=== PATIENT | male | born 1995 | race Caucasian/White ===

== ENCOUNTER 2025-06-08 10:18 | Emergency (ER) | payer MEDICARE, SELFPAY ==
[2025-06-08 10:32] VITALS: BP 119/88; PULSE 88; RESP 18; TEMP 36.1; O2SAT 98; BMI 25.1
--- NOTE | 2025-06-08 10:47 | ED.PSYCH ---
HPI - Psych General Chief Complaint: Psychiatric Symptoms Stated Complaint: SI, section 12 Source: patient, EMS and old records reviewed Mode of arrival: EMS Limitations: no limitations History of Present Illness ED Provider: MELISSA HPI Narrative: 29 yo male who states he takes no meds but sees a therapist. Going through a break up and went to work today c/o SI and plans to cut his throat. He tells me no substance abuse or ETOH issues. He denies ever going inpatient before for mental health issues. He has been punching jones has some old healed scabs on his bilateral knuckles. MD complaint: suicidal ideation, feels depressed and anxiety Onset (ago): week(s) Duration: getting worse History of same: No Relieving factors: none Exacerbating factors: other Context: significant life stressor Associated psychiatric symptoms: depression and suicidal ideation Associated symptoms: denies other symptoms Treatments prior to arrival: placed on mental health hold If self harm: admits thoughts of self harm and has plan Related Data Allergies Allergy/AdvReac Type Severity Reaction Status Date / Time No Known Allergies Allergy Verified 06/08/25 10:34 Review of Systems Review of Systems: Constitutional : No Fever, No Chills ENT/Mouth : No Ear Pain, No Nasal Congestion, No sore throat Eyes: No Eye Pain, No Swelling, No Redness Cardiovascular : No Chest Pain, No SOB Respiratory : No Cough, No Sputum, No Dyspnea Gastrointestinal : No Nausea, No Vomiting, No Diarrhea, No Hematochezia, No Melena Genitourinary : No Dysuria, No Urinary Frequency, No Hematuria Musculoskeletal : No Myalgias Skin : No Skin Lesions, No rash Neuro : No Weakness, No Numbness, No Paresthesias, No Dizziness, No Headache Psych : positive Anxiety, positive Depression, positive SI no HI All other systems reviewed and are negative Yes all other systems are reviewed and are negative [facility] Past Medical History Attestation statement: The following information was validated with the patient. 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 Oriented X3. No acute distress. Eyes: Pupils equal, round and reactive to light. ENT: Pharynx normal. Neck: Normal inspection. Neck supple. CVS: Normal heart rate and rhythm. Pulses normal. Respiratory: No respiratory distress. Breath sounds normal. Abdomen: Soft and nontender. Skin: Skin warm and dry. Normal skin color. Normal skin turgor. Extremities: No lower extremity edema. bilateral hands have scabbed areas but normal ROM Neuro: Oriented X 3. No motor deficit. No sensory deficit. CN2-12 intact Course Course Course Narrative: Time: 14:27 Date: 06/08/25 Provider: Indira Whitt DO Physician observation ended at 227pm. Patient to be discharged home cleared by CARE team Medical Decision Making Medical Decision Making MDM Narrative: 29 yo male on S12 here with c/o recent break up now with SI - will obtain labs and CARE team consult. He declines any concerns for medical illness Differential Diagnosis Differential Diagnoses: The differential diagnosis associated with the presentation includes ETOH abuse, SI, depression Admission/Observation Consideration of admission/observation: Escalation of care including admission/observation considered physician observation started at 1138am pending CARE team Consult Healthcare Provider Management of the patient was discussed with: Behavioral Health Provider Lab Data [facility] Lab Attestation statement: I reviewed the patient's lab results. 06/08/25 10:59 06/08/25 10:59 Labs: Lab Results 06/08/25 06/08/25 06/08/25 Range/Units 10:59 12:21 12:23 WBC 5.3 (4.8-10.8) X10*3/uL RBC 4.97 (4.60-5.80) X10*6/uL Hgb 15.8 (14.0-18.0) g/dl Hct 45.8 (42.0-52.0) % MCV 92.2 (80.0-98.0) fL MCH 31.8 (27.0-33.0) pg MCHC 34.5 (31.0-36.0) g/dl RDW 12.2 (11.0-16.0) % Plt Count 300 (160-400) X10*3/uL MPV 8.5 L (9.4-12.4) fL Immature Gran % (Auto) 0.4 (0.0-0.4) % Neut % (Auto) 66.4 (45-73) % Lymph % (Auto) 20.6 (20-40) % [place] % (Auto) 9.9 (2-11) % Eos % (Auto) 1.9 (0-4) % Baso % (Auto) 0.8 (0-2) % Lymph # (Auto) 1.1 L (1.2-4.9) X10*3/uL [place] # (Auto) 0.5 (0.1-1.2) X10*3/uL Eos # (Auto) 0.1 (0.0-0.4) X10*3/uL Baso # (Auto) 0.0 (0.0-0.2) X10*3/uL Abs Immat Gran (auto) 0.02 (0.00-0.03) X10*3/uL Absolute Neuts (auto) 3.5 (2.0-8.3) x10*3/uL Absolute Nucleated RBC 0.000 (0.0-0.012) X10*3/uL Nucleated RBC % (auto) 0.0 (0.0-0.2) /100WBC Sodium 141 (135-145) mmol/L Potassium 4.2 (3.3-5.1) mmol/L Chloride 106 (96-108) mmol/L Carbon Dioxide 23 (22-29) mmol/L Anion Gap 16 (12-20) BUN 8 L (9-16) mg/dL Creatinine 0.91 (0.5-1.4) mg/dL Estim Creat Clear Calc 115.8 Estimated GFR > 60 Random Glucose 85 (60-115) mg/dL Calcium 9.3 (8.4-10.2) mg/dL Magnesium 2.3 (1.6-2.6) mg/dL Total Bilirubin 0.6 (0.0-1.0) mg/dL Direct Bilirubin 0.2 (0.0-0.5) mg/dL AST 180 H (5-37) U/L ALT 279 H (0-40) U/L Alkaline Phosphatase 58 (39-117) U/L Total Protein 7.8 (6.5-8.0) g/dL Albumin 5.1 H (3.5-5.0) g/dL Urine Color Yellow Urine Appearance Clear Urine pH 7.0 (5.0-9.0) Ur Specific [place] <= 1.005 (1.005-1.025) Urine Protein Negative (Neg-Trace) mg/dL Urine Glucose (UA) Negative (Negative) mg/dL Urine Ketones Negative (Negative) mg/dL Urine Blood Negative (Negative) Urine Nitrite Negative (Negative) Ur Leukocyte Esterase Negative (Negative) Urine Opiates Screen Not Detected (Not Detect) Ur Buprenorphine Scrn Not Detected (Not Detect) ng/mL Ur Oxycodone Screen Not Detected (Not Detect) ng/mL Urine Methadone Screen Not Detected (Not Detect) ng/mL Urine Fentanyl Screen Not Detected (Not Detect) Ur Barbiturates Screen Not Detected (Not Detect) Ur Phencyclidine Scrn Not Detected (Not Detect) Ur Amphetamines Screen Not Detected (Not Detect) U Benzodiazepines Scrn Not Detected (Not Detect) Urine Cocaine Screen Not Detected (Not Detect) U Marijuana (THC) Screen Not Detected (Not Detect) Ethyl Alcohol 158 mg/dL Independent Historian Clinical information obtained from an independent historian. History obtained from or confirmed by: EMS Discharge Plan Discharge Clinical Impression: Depression Qualifiers: Depression Type: unspecified Qualified Code(s): F32.A - Depression, unspecified Patient Disposition: Home, Self-Care Instructions: Depression (ED) Additional Instructions: You were seen in our Emergency Department today for treatment of a behavioral health issue. It is important after your visit that you follow up with either your behavioral health provider or a primary care doctor within 7 days.? If you have trouble finding a therapist you can reach out to [address] [phone] The National Suicide and Crisis Lifeline can be reached 7 days a week 24 hours a day.? Call 988 to speak with someone.? Return for any worsening symptoms or concerns such as thoughts of self harm or harm to others. Please call 911 if you feel your mental health is worsening.? Interventions: Glades-Suicide Risk Severity Scale Last Done: 06/08/25 11:27 Print Language: Tongan
[2025-06-08 11:03] LABS: MANUAL DIFF FLAG NO
[2025-06-08 11:05] LABS: Hematocrit 45.8 % (42.0-52.0); Hemoglobin 15.8 g/dl (14.0-18.0); Imm Gran Abs Auto 0.02 X10*3/uL (0.00-0.03); Imm Gran Pct Auto 0.4 % (0.0-0.4); Lymphocytes Absolute Auto 1.1 X10*3/uL (1.2-4.9); Mean Corpuscular HGB Conc 34.5 g/dl (31.0-36.0); Mean Corpuscular Hemoglobin 31.8 pg (27.0-33.0); Mean Corpuscular Volume 92.2 fL (80.0-98.0); NRBC Abs Auto 0.000 X10*3/uL (0.0-0.012); NRBC Pct Auto 0.0 /100WBC (0.0-0.2); Platelet Count 300 X10*3/uL (160-400); Red Blood Count 4.97 X10*6/uL (4.60-5.80); White Blood Count 5.3 X10*3/uL (4.8-10.8)
--- NOTE | 2025-06-08 11:07 | MHC.EDTECH ---
Patient provided urine cup for sample upon arrival to ED pod. Patient states he is unable to provide a sample at this time. Urine cup at bedside
--- NOTE | 2025-06-08 11:25 | MHC.EDTECH ---
440.00 in patient locker 1. Patient spoke with security Severino and patient decided against locking english with security. English counted with security present. Counted again with Dhara Varner at nurses desk.Patient agrees that he has $440.00 in the following denomination of bills. 3 - 50.00 1 - 100.00 9 - 20.00 5 - 1.00
[2025-06-08 11:30] LABS: Alanine Aminotransferase 279 U/L (0-40); Albumin Level 5.1 g/dL (3.5-5.0); Alkaline Phosphatase 58 U/L (39-117); Anion Gap 16 (12-20); Aspartate Amino Transferase 180 U/L (5-37); Blood Urea Nitrogen 8 mg/dL (9-16); Calcium 9.3 mg/dL (8.4-10.2); Carbon Dioxide 23 mmol/L (22-29); Chloride 106 mmol/L (96-108); Creatinine Clr Calc Pharmacy 115.8; Estimated Glomerular Filt Rate > 60; Magnesium 2.3 mg/dL (1.6-2.6); Potassium 4.2 mmol/L (3.3-5.1); Sodium 141 mmol/L (135-145); Total Protein 7.8 g/dL (6.5-8.0)
[2025-06-08 12:31] LABS: Appearance Urine Clear; Glucose Urine UA Negative (Negative); PH 7.0 (5.0-9.0); Specific Gravity - Urine <= 1.005 (1.005-1.025)
[2025-06-08 12:43] LABS: Cannabinoid Screen Urine Not Detected (Not Detect)
--- OUTSIDE RECORDS SUMMARY | 2025-06-08 13:24 | XMS_ITS | Encounter Summary ---
Author Organization [facility] Address [address] [place] [address] Phone Care Team Providers Care Manager Of Radiology Name Role Phone Salvatore Brooks MD Primary Care Provider Unavailabl e Encounter Details Date Type Department Care Team (Late st Contact Info) Description 05/08/2017 Conversion Encounter [facility] - [address], [address] [place] [address] Salvatore Brooks MD Social History Tobacco Use Types Packs/Day Years Used Date Smoking Tobacco: Never Assessed Sex and Gender Information Value Date Recorded Sex Assigned at Not on file Legal Sex Male 3:10 PM EST Gender Identity Not on file Sexual Orientation Not on file documented as of this encounter Plan of Treatment Not on file documented as of this encounter Visit Diagnoses Not on filedocumented in this encounter Care Teams Manager Of Radiology Relationship Specialty Start Date End Date Salvatore Brooks MD PCP - General 11/20/16 04/09/21 documented as of this encounter
--- OUTSIDE RECORDS SUMMARY | 2025-06-08 13:24 | XMS_ITS | Clinical Summary ---
Author Organization [facility] Address [address] [place], [place] [id number] Phone Care Team Providers Care Continuous Improvement Manager Name Role Phone Unavailable Primary Care Provider Unavailabl e Active Problems Patient Care Coordination No te Formatting of this note migh t be different from the original. 12/10/18 [place] [facility] [place], chart inactivated No additional problems on file Immunizations Immunization Administration Dates Next Due DTaP 11/22/2000, 8,08/09/1997, 996,1995 HPV, Quadrivalent 10/12/2013,10/08/2012 Hep B, ped/adol 10/09/1996,05/26/1996,04/30/1996 Hib (PRP-T) 03/08/1998, 7,04/30/1996, 996 MMR 11/22/2000,03/08/1998 Meningococcal Conj (Menactra) MCV4P 10/12/2013,0 12/12/2007 OPV 11/22/2000, 7,04/30/1996, 996 Tdap 10/08/2006 Varicella 02/29/1996 Social History Tobacco Use Types Packs/Day Years Used Date Smoking Tobacco: Never Assessed Sex and Gender Information Value Date Recorded Sex Assigned at Not on file Legal Sex Male 3:10 PM EST Gender Identity Not on file Sexual Orientation Not on file Last Filed Vital Signs Vital Sign Reading Time Taken Comments Blood Pressure 106/65 10/12/2013 12:00 AM EST Pulse 71 10/12/2013 12:00 AM EST Temperature 36.6 C (97.8 F) 03/03/2013 12:00 AM EDT Respiratory Rate - - Oxygen Saturation - - Inhaled Oxygen Concentration - - Weight 72.4 kg (159 lb 9.6 oz) 10/12/2013 12:00 AM EST Height 177.8 cm (5' 10 ) 10/12/2013 12:00 AM EST Body Mass Index 22.9 10/12/2013 12:00 AM EST Plan of Treatment Health Maintenance Due Date Last Done Comments Hepatitis B Vaccines (3 of 3 - 3-dose series) 12/04/1996 10/09/1996, 05/26/1996, 04/30/1996 Varicella Vaccines (1 of 2 - 13+ 2-dose series) 2008 02/29/1996 HPV Vaccines (3 - Male 3-dose series) 01/04/2014 10/12/2013, 10/08/2012 DTaP,Tdap,and Td Vaccines (7 - Td or Tdap) 10/08/2016 10/08/2006, 11/22/2000, 03/08/1998, Additional history exists Influenza Vaccines (#1) 2025 COVID-19 Vaccine ( season) 2025 HIB Vaccines Completed 03/08/1998, 09/30, 04/30/1996, Additional history exists IPV Vaccines Completed 11/22/2000, 09/30, 04/30/1996, Additional history exists MMR Vaccines Completed 11/22/2000, 03/08/1998 Meningococcal Vaccine Completed 10/12/2013, 008 Hepatitis A Vaccines Aged Out No long er eligible based on patient's age to complete this topic Men B Vaccine Aged Out No longer elig ible based on patient's age to complete this topic Pneumococcal Vaccine Aged Out No long er eligible based on patient's age to complete this topic
--- OUTSIDE RECORDS SUMMARY | 2025-06-08 13:24 | XMS_ITS | Patient Health Record ---
Author Organization [facility] Address [address] [place] [address] Care Team Providers Care Program Project Manager Name Role Phone Riley Rod Primary Care Provider Ranjeet CHANDANA Aldrich Unavailable [phone] Allergies No Known Allergies Reason For Referral No Information Medications Medication SIG (Take, Route, Frequency, Duration) Notes Start Date End Date Status Ibuprofen 600 MG Tablet 1 tablet Orally Three times a day; Duration: 5 days Not-Taking Cipro 500 MG Tablet 1 tablet Orally ever y 12 hrs; Duration: 10 day(s) Not-Parish ing Plan Of Treatment Pending Test Test Name Order Date URINALYSIS 08/31/2020 Hepatitis B Core Antibody 0108-1 021 Hepatitis C Antibody, EIA 0812-8 021 HIV AG/AB 4th Generation B688-3 11/25/19 21 RPR Serology 0142-0 11/25/2020 Medications Administered Medication Instructions Date of Administration Dosage Notes ROCEPHEN - 1 GRAM 11/25/2020 1 g ROCEPHEN - 1 GRAM 12/28/2020 Medical (General) History Surgical History Surgery Date(Month/Year)
--- OUTSIDE RECORDS SUMMARY | 2025-06-08 13:24 | XMS_ITS | Clinical Summary ---
Author Organization [facility] Address [address] [place] [address] Phone Care Team Providers Care Ore Crushing Dust Collector Name Role Phone Joey Ruiz MD Primary Care Provider Allergies No known active allergies Medications No known medications Encounters Date Type Department Care Team Description 03/10/2025 6:35 PM EDT - 03/10/2025 8:57 PM EDT Emergency [facility] [address] [place] [address] Pham Zamora MD Discharge Disposition: Home or Self Care from Last 3 Months Social History Tobacco Use Types Packs/Day Years Used Date Smoking Tobacco: Never Smokeless Tobacco: Never Tobacco Cessation:Counseling Given: Not Answered Alcohol Use Standard Drinks/Week Comments Yes 0 (1 standard drink = 0.6 oz pur e alcohol) 1 bottle a day Education Answer Date Recorded Are you interested in more education? Not on vincent e 12/22/2023 Are you concerned about learning? Not on file 12/22/2023 No 12/22/2023 No 12/22/2023 Food Answer Date Recorded Within the past 6 months we worried whether our food would run out before we got money to buy more. Never True 03/10/2025 Within the past 6 months the food we bought just didn't last and we didn't have enough money to get more. Never True Residential Stability Answer Date Recor ded What is your housing situation today? I have barby sing 03/10/2025 How many times have you move d in the past 12 months? Zero (I did not move) 03/10/2025 Paying for Meds Answer Date Recorded Do you have trouble paying for medicines? No 03/10/2025 Paying Utility Bills Answer Date Record ed Do you have trouble paying your heating or elect ricity bill? No 03/10/2025 Transportation Answer Date Recorded Has the lack of transportati on kept you from medical appointments or from getting medications? No 03/10/2025 Digital Access Answer Date Recorded No 03/10/2025 Yes 03/10/2025 Do you have reliable internet access at home? Ye s 03/10/2025 Do you have a device (e.g., phone, tablet, computer) with a working camera? Yes 03/10/2025 Intimate Partner Violence Answer Date R ecorded Are you denied basic needs s uch as food, clothing, or medical care? No 03/10/2025 In the past 12 months have y ou been in a relationship with a person who hurts, threatens, or tries to control you? No 03/10/2025 Are you denied basic needs s uch as food, clothing, or medical care? No 03/10/2025 In the past 12 months have y ou been in a relationship with a person who hurts, threatens, or tries to control you? No 03/10/2025 Sex and Gender Information Value Date Recorded Sex Assigned at Male 12/22/2023 7:59 AM EDT Legal Sex Male 8:52 PM EDT Gender Identity Male 12/22/2023 7:59 AM EDT Sexual Orientation Don't know 10/08/2024 5: 53 PM EST Last Filed Vital Signs Vital Sign Reading Time Taken Comments Blood Pressure 116/81 03/10/2025 8:21 PM EDT Pulse 86 03/10/2025 8:21 PM EDT Temperature 36.2 C (97.2 F) 03/10/2025 8:21 PM EDT Respiratory Rate 18 03/10/2025 8:21 PM EDT Oxygen Saturation 98% 03/10/2025 8:21 PM EDT Inhaled Oxygen Concentration - - Weight 80.2 kg (176 lb 14.4 oz) 03/10/2025 6:28 PM EDT Height 180.3 cm (5' 11 ) 03/10/2025 6:44 PM EDT Body Mass Index 24.67 03/10/2025 6:28 PM EDT Plan of Treatment Health Maintenance Due Date Last Done Comments DEPRESSION SCREENING 2007 HIV ONE-TIME SCREENING (18-6 5 YEARS) 2013 Adult Td,Tdap Booster 10/08/2016 10/08/2006 SMOKING STATUS SCREENING (On ce After 26 Yrs) 2021 INFLUENZA VACCINE (#1) 2025 COVID-19 VACCINE ( - 2023-2 5 season) 2025 HEPATITIS C SCREENING Completed 04/10/2018 HEPATITIS A VACCINES Aged Out No long er eligible based on patient's age to complete this topic HIB VACCINES Aged Out No longer eligi ble based on patient's age to complete this topic MENINGOCOCCAL VACCINES (ACWY) Aged Out No longer eligible based on patient's age to complete this topic MENINGOCOCCAL VACCINES (B) Aged Out N o longer eligible based on patient's age to complete this topic PNEUMOCOCCAL VACCINES (0-49 years) Aged Out No longer eligible based on patient's age to complete this topic Medical Devices Not on file Procedures Procedure Name Priority Date/Time Associated Diagnosis Comments URINALYSIS W/REFLEX URINE CULTURE STAT 03/10/2025 6:38 PM EDT LIPASE STAT 03/10/2025 6:36 PM EDT LFTS (HEPATIC PANEL) STAT 03/10/2025 6:36 PM EDT BASIC METABOLIC PANEL STAT 03/10/2025 6:36 PM EDT CBC AND DIFFERENTIAL STAT 03/10/2025 6:36 PM EDT ECG 12-LEAD STAT 03/10/2025 6:20 PM EDT from Last 3 Months Results * (ABNORMAL) Urinalysis w/reflex Urine Culture (03/10/2025 6:38 PM EDT) COLOR STRAW(A) Yellow [facility] CLARITY Clear [facility] GLUCOSE Negative Negative [facility] BILI Negative Negative [facility] KETONES Negative Negative [facility] SPECIFIC GRAVITY <1.005 1.005 - 1.030 [facility] BLOOD Trace(A) Negative [facility] PH 6.5 5.0 - 8.0 [facility] Protein-UA Negative Negative [facility] NITRITE Negative Negative [facility] Leukocyte esterase, ur Negative Negative [facility] Urine (Urine) 03/10/2025 6:3 8 PM EDT 03/10/2025 6:43 PM EDT us Pham Zamora MD URINE ORDERABLES Final Re sult Performing Organization Address City/[facility]/ZIP Co de Phone Number [address] [address] * (ABNORMAL) LFTs (hepatic panel) (03/10/2025 6:36 PM EDT) ALKALINE PHOSPHATASE 74 39 - 117 U/L [facility] TOTAL BILIRUBIN 0.4 0.0 - 1.2 mg/dL [facility] DIRECT BILIRUBIN 0.2 0.0 - 0.2 mg/dL [facility] Bilirubin (Indirect) 0.2 0 - 1.5 mg/dL [facility] AST 144(H) 0 - 37 U/L [facility] ALT 163(H) 0 - 40 U/L [facility] TOTAL PROTEIN 7.6 6.5 - 8.0 g/dL [facility] ALBUMIN 4.7 3.9 - 4.8 g/dL [facility] GLOBULIN 2.9 1 - 4.8 g/dL [facility] A/G Ratio 1.62 1.00 - 4.80 RATIO [facility] Blood 03/10/2025 6:36 PM EDT 03/10/2025 6:39 PM EDT us Pham Zamora MD LAB BLOOD ORDERABLES Kristi l Result Performing Organization Address City/[facility]/ZIP Co de Phone Number [address] [address] * (ABNORMAL) CBC and differential (03/10/2025 6:36 PM EDT) WBC 4.63 4.00 - 11.00 K/uL [facility] RBC 4.68 4.50 - 5.90 M/uL [facility] HGB 15.2 13.5 - 17.5 g/dL [facility] HCT 43.8 41.0 - 53.0 % [facility] PLT 249 150 - 450 K/uL [facility] MCV 93.6 80.0 - 100.0 fL [facility] MCH 32.5(H) 27.0 - 31.0 pg [facility] MCHC 34.7 32.0 - 36.0 g/dL [facility] RDW 12.2 11.5 - 14.5 % [facility] MPV 8.6 8.4 - 12.0 fL [facility] NRBC 0.00 0.00 /100 WBCs [facility] ABSOLUTE NRBC 0.00 0.00 K/uL [facility] DIFF METHOD Auto [facility] NEUTS 50.9 48.0 - 76.0 % [facility] LYMPHS 28.9 18.0 - 41.0 % [facility] MONOS 11.0 4.0 - 11.0 % [facility] EOS 8.4(H) 0.0 - 5.0 % [facility] BASOS 0.6 0.0 - 1.5 % [facility] Granulocytes, immature (%) 0.2 0.0 - 0.9 % [facility] ABSOLUTE NEUTS 2.35 1.92 - 7.60 K/uL [facility] ABSOLUTE LYMPHS 1.34 0.72 - 4.10 K/uL [facility] ABSOLUTE MONOS 0.51 0.16 - 1.10 K/uL [facility] ABSOLUTE EOS 0.39 0.00 - 0.50 K/uL [facility] ABSOLUTE BASOS 0.03 0.00 - 0.15 K/uL [facility] Granulocytes, immature 0.01 0.00 - 0.09 K/uL [facility] Blood 03/10/2025 6:36 PM EDT 03/10/2025 6:39 PM EDT us Ilianan Myra Zamora MD LAB BLOOD ORDERABLES Kristi l Result [address] [address] * Lipase (03/10/2025 6:36 PM EDT) LIPASE 45 16 - 63 U/L [facility] Blood 03/10/2025 6:36 PM EDT 03/10/2025 6:39 PM EDT us Pham Zamora MD LAB BLOOD ORDERABLES Kristi l Result Performing Organization Address [facility] Co de Phone Number [address] [address] * (ABNORMAL) Basic metabolic panel (03/10/2025 6:36 PM EDT) Pathologist [facility] SODIUM 141 133 - 146 mmol/L [facility] CHLORIDE 105 96 - 108 mmol/L [facility] POTASSIUM 3.9 3.3 - 5.1 mmol/L [facility] CO2 22 21 - 35 mmol/L [facility] BUN 8 6 - 19 mg/dL [facility] CREATININE 0.90 0.5 - 1.5 mg/dL [facility] GLUCOSE 109(H) 70 - 99 mg/dL [facility] CALCIUM 9.4 8.4 - 10.3 mg/dL [facility] EGFR 119 >59 mL/min/1.7 3m2 [facility] Comment:Estimated glomerular filtration rate calculated using the CKD-EPI refit equation. ANION GAP 18 10 - 20 mmol/L [facility] Blood 03/10/2025 6:36 PM EDT 03/10/2025 6:39 PM EDT us Pham Zamora MD LAB BLOOD ORDERABLES Kristi l Result Performing Organization Address City/[facility]/ZIP Co de Phone Number [address] [address] * ECG 12-LEAD (03/10/2025 6:20 PM EDT) Ventricular Rate EKG/MIN 101 BPM [facility] Atrial Rate 101 BPM [facility] ND Interval 142 ms [facility] QRS Duration 100 ms [facility] QT Interval 360 ms [facility] QTC Interval 466 ms [facility] P [place] 54 degrees [facility] R Wave [place] 35 degrees [facility] T Wave [place] 31 degrees [facility] 03/10/2025 6:20 PM EDT 03/11/2025 3:38 PM EDT Narrative [facility] - 03/11/2025 3:38 PM EDT Sinus tachycardia RSR' or QR pattern in V1 suggests right ventricular conduction delay Borderline ECG When compared with ECG of 08-Oct-2024 15:52, RSR' pattern in V1 is now Present Confirmed by Dewayne Lowe ([id number]) on 03/11/2025 3:38:38 PM Pham Zamora MD ECG ORDERABLES Final Res ult [facility] from Last 3 Months Insurance [facility] [employer] [facility] [employer] [facility] [place] [address] [place] [address] TOGETHER [facility] TOGETHER [facility] TOGETHER MCO [facility] [employer] Care Teams Ore Crushing Dust Collector Relationship Specialty Start Date End Date Joey Ruiz MD [address] [place] [phone] PCP - General 03/10/25 Additional Source Comments The information contained in this document represents components of the legal health record. It is not the complete legal health record.[facility]
--- NOTE | 2025-06-08 14:35 | PC.NURSE ---
Pt D/C home, belongings returned and pt changed into street clothes. D/C instructions reviewed with pt and verbalized understanding. Escorted to waiting room with ED staff.
[2025-06-08 14:36] VITALS: BP 101/92; PULSE 99; RESP 18; TEMP 37.3; O2SAT 100
== END 2025-06-08 14:37 | disposition home or self-care (01) ==
PROVIDERS: Emergency Provider Emergency Medicine
DX: F33.1 Major depressive disorder, recurrent, moderate (principal); R45.851 Suicidal ideations; F43.9 Reaction to severe stress, unspecified; F41.9 Anxiety disorder, unspecified; Z51.81 Encounter for therapeutic drug level monitoring; Z79.899 Other long term (current) drug therapy
CPT/HCPCS: 36415; 80048; 80076; 80307; 81003; 83735; 85025; 99284; S9485

== ENCOUNTER 2025-09-03 18:45 | Emergency (ER) | payer MEDICARE, SELFPAY ==
--- OUTSIDE RECORDS SUMMARY | 2025-09-02 18:50 | XMS_ITS | Encounter Summary ---
Author Organization [facility] Address [address] [place] [id number] Phone Care Team Providers Care Film Reproducer Name Role Phone Joey Ruiz MD Primary Care Provider Reason for Visit * Reason Comments Agitation Encounter Details Date Type Department Care Team ([facility] st Contact Info) Description 09/02/2025 6:50 PM EST - 09/02/2025 9:46 PM EST Emergency [facility] [address] [place] [address] Margarita Manrique MD [address] [place] [address] [email or web address] Discharge Disposition: Home or Self Care Social History Tobacco Use Types Packs/Day Years Used Date Smoking Tobacco: Never Smokeless Tobacco: Never Alcohol Use Standard Drinks/Week Comments Yes 0 [...] as food, clothing, or medical care? No 09/02/2025 In the past 12 months have y ou been in a relationship with a person who hurts, threatens, or tries to control you? No 09/02/2025 Are you denied basic needs s uch as food, clothing, or medical care? No 09/02/2025 In the past 12 months have y ou been in a relationship with a person who hurts, threatens, or tries to control you? No 09/02/2025 Sex and Gender Information Value Date Recorded Sex Assigned at Male 12/22/2023 7:59 AM EDT Legal Sex Male 8:52 PM EDT Gender Identity Male 12/22/2023 7:59 AM EDT Sexual Orientation Don't know 10/08/2024 5: 53 PM EST documented as of this encounter Last Filed Vital Signs Vital Sign Reading Time Taken Comments Blood Pressure 120/84 09/02/2025 9:00 PM EST Pulse 88 09/02/2025 9:00 PM EST Temperature 36.1 C (97 F) 09/02/2025 6:50 PM EST Respiratory Rate 15 09/02/2025 9:00 PM EST Oxygen Saturation 100% 09/02/2025 9:00 PM EST Inhaled Oxygen Concentration - - Weight - - Height - - Body Mass Index - - documented in this encounter Functional Status * Calculated C-SSRS Risk Score (Lifetime/Recent) Answer Date of Assessment Author No Risk Indicated 09/02/2025 7:25 PM EST Jennifer Sharma RN * [place] Suicide Severity Rating Scale (Screener/Recent Self-Report) Question Answer Date of Assessment Author 1. Wish to be (Past 1 Month) No 025 7:25 PM EST Jennifer Cintron RN 2. Non-Specific Active Suici shlomo Thoughts (Past 1 Month) No 09/02/2025 7:25 PM EST Osei Cinrton RN 6. Suicidal Behavior (Lifetime) No 7:25 PM EST Jennifer Cintron RN documented as of this encounter Discharge Instructions * Discharge Instructions* Margarita Manrique MD - 09/02/2025 7:10 PM EST Try to get help for alcohol use avoid cocaine 2. Make sure drinking plenty food to stay hydrated 3. Safe ride home no driving for you 4. Return any problems or concerns follow-up with your doctor as needed. documented in this encounter ED Notes * Jennifer Cintron RN - 09/02/2025 9:45 PM EST ED Discharge Nursing Note Pt left prior to reviewing d/c instructions, pt seen leaving with family member, pt was ambulating with steady gait * Jennifer Cintron RN - 09/02/2025 6:55 PM EST Pt biba after pts sister called with report of being diaphoretic, agitated and confused after alcohol and cocaine use, pt reports he is a daily drinker and does not normally use cocaine d/t having a bad reaction , EMS reports pt would all asleep, wake up and then become agitated and flail his arms, Pt was given 2.5mg of versed by EMS * Margarita Manrique MD - 09/02/2025 6:46 PM EST Chief Complaint Chief Complaint Patient presents with Agitation History of Present Illness The patient, Mannie Varner,is a 30 y.o. male who presents for evaluation of Agitation The patient reports that he works as a urology physician and he was up at $250 that if he would go into the back and do some cocaine with some of his customers that he get 250$ he went to do this any snorted cocaine this morning at 9:00 he states he has not used cocaine in quite some time. He states he started to get agitated with it so he drank his normal or more amount of alcohol usually drinks about 14 drinks of vodka a day he was sleeping and apparently he states he did not really answer the door his sister got concerned about him apparently a sister reported that he was agitated and diaphoretic they called EMS EMS gave the patient 2.5 mg of Versed and brought him to the ED. Patient states he feels fine. He has no complaints at this time he denies ever having any chest pain or difficulty breathing no abdominal pain he states he just got agitated earlier today. He denies nausea or vomiting denies abdominal pain denies fevers or chills denies feeling unwell denies falls denies injury denies any chest pain or at this time denies any concerns at this time. He states he is just a little cold and sleeping. Unless otherwise specified, I have reviewed and agree with the triage and nursing notes. ROS A ten point review of systems was negative except what was noted in the HPI. Review of Systems Past Medical History No past medical history on file. Past Surgical History No past surgical history on file. Home Medications Prior to Admission medications Not on File Allergies No Known Allergies Social and Family History Social History Tobacco Use Smoking status: Never Smokeless tobacco: Never Substance Use Topics Alcohol use: Yes Comment: 1 bottle a day Social History Substance and Sexual Activity Drug Use Not on file No family history on file. Physical Exam Vital Signs: ED Triage Vitals Encounter Vitals Group BP Girls Systolic BP Percentile Girls Diastolic BP Percentile Boys Systolic BP Percentile Boys Diastolic BP Percentile Pulse Resp Temp Temp src SpO2 Weight Height Head Circumference Peak Flow Pain Score Pain Loc Pain Education Exclude from Growth Chart Physical Exam General: Patient awake alert oriented to person place events and time mentating normally HEENT exam pupils are about 4 to 5 mm bilaterally extraocular motions intact mucous membranes moistposterior pharynx normal neck supple Cardiovascular: Normal S1-S2 no appreciable murmurs rubs or gallops noted Respiratory: Clear to auscultation bilaterally Abdomen: Soft nontender nondistended no pain right upper left upper right lower left lower quadrants Extremities well-perfused 5 out of 5 strength upper and lower extremities strong equal pulses x 4 Neuro: Nonfocal Laboratory Testing Results for orders placed or performed during the hospital encounter of 09/02/25 POCT Glucose Result Value Ref Range Glucose 96 70 - 99 mg/dL Creatine Kinase (CK) Specimen: Blood Result Value Ref Range Creatine Kinase (CK) 456 (H) 39 - 308 U/L CBC and Differential Specimen: Blood Result Value Ref Range WBC 6.99 4.00 - 11.00 K/uL RBC 4.87 4.50 - 5.90 M/uL Hemoglobin 15.2 13.5 - 17.5 g/dL Hematocrit 44.5 41.0 - 53.0 % MCV 91.4 80.0 - 100.0 fL MCH 31.2 (H) 27.0 - 31.0 pg MCHC 34.2 32.0 - 36.0 g/dL MPV 8.6 8.4 - 12.0 fL RDW-CV 12.3 11.5 - 14.5 % PLT 256 150 - 450 K/uL Neutrophils 66.1 % Lymphocytes 24.0 % Monocytes 7.3 % Eosinophils 1.6 % Basophils 0.9 % Imm Grans 0.1 % NRBC 0.0 <=0.0 /100 WBCs Absolute Neutrophils 4.62 1.92 - 7.60 K/uL Absolute Lymphocytes 1.68 0.72 - 4.10 K/uL Absolute Monocytes 0.51 0.16 - 1.10 K/uL Absolute Eosinophils 0.11 0.00 - 0.50 K/uL Absolute Basophils 0.06 0.00 - 0.15 K/uL Absolute Imm Grans 0.01 0.00 - 0.09 K/uL Absolute NRBC 0.00 <=0.00 K cells/uL Absolute Neutrophils 4.62 1.92 - 7.60 K/uL Diff Type Auto Ethanol, Blood Specimen: Blood Result Value Ref Range Ethanol 227 (H) Negative; <11 mg/dL Magnesium Specimen: Blood Result Value Ref Range Magnesium 2.1 1.7 - 2.6 mg/dL Hepatic Panel (LFTs) Specimen: Blood Result Value Ref Range AST 110 (H) <40 U/L ALT 167 (H) <50 U/L Alkaline Phosphatase 58 40 - 130 U/L Bilirubin, Total 0.5 0.0 - 1.2 mg/dL Bilirubin, Direct 0.2 0.0 - 0.3 mg/dL Total Protein 7.7 6.4 - 8.3 g/dL Albumin 4.6 3.5 - 5.2 g/dL Globulin 3.1 1.9 - 4.1 g/dL Basic Metabolic Panel (BMP) Specimen: Blood Result Value Ref Range Sodium 142 136 - 145 mmol/L Potassium 3.9 3.4 - 5.1 mmol/L Chloride 104 98 - 107 mmol/L CO2 25 20 - 31 mmol/L Anion Gap 13 3 - 17 mmol/L BUN 7 6 - 23 mg/dL Creatinine 0.90 0.60 - 1.30 mg/dL eGFR 118 >59 mL/min/1.73m2 Glucose 79 70 - 99 mg/dL Calcium 9.2 8.5 - 10.5 mg/dL Radiology Testing No orders to display ED Medication from 09/02/2025 1846 to 09/02/2025 210 Date/Time Order Dose Route Action Action by Comments 09/02/2025 192 EST sodium chloride 0.9% bolus 1,000 mL 1,000 mL Intravenous New Bag Jennifer Cintron RN -- [facility] Assessment and Plan: Patient is a 30-year-old male reporting alcohol use after using cocaine this morning after agitation from cocaine. He states the alcohol actually worked pretty well. Patient brought in by EMS after apparently being reported to be agitated and diaphoretic. Patient was given 2.5 mg of Versed prehospital patient is calm and cooperative in the ED mentating normally no febrile illness blood sugar normal at 93. We will get basic laboratory evaluation here today to rule out significant derangement or renal insufficiency. Patient has no muscular tenderness to suggest rhabdomyolysis. Patient denies any chest pain to suggest cardiovascular compromise from cocaine. We will get EKG for baseline to rule out abnormality. Patient is comfortable at this time denies any concerns at this time. Patient feels safe at this time no thoughts of harming himself or anyone else. We did discuss possible detox he states he is not ready he has gone 3 times in the past he has beenbinging again for the past 3 months. He states he knows how to go to detox when he is ready. He does have a sister who is supportive. He denies thoughts about harming himself or anyone else at this time. Category 1: Tests, Studies or Independent Historians: Independent Historian: Independent history was obtained by EMS. Independent history was obtained byfamily/guardian. Prior Data Reviewed: Prior EKG was reviewed. Prior notes reviewed. Prior labs reviewed. Prior radiology tests reviewed. Old charts and visits reviewed for alcohol abuse and use last visit in the ED was in February. Category 2 and 3: Independent Interpretation of Tests, Consideration of Tests, or External Discussion of Results: Labs: Laboratory studies were interpreted. ECG: EKG studies were independently interpreted. ED Course as of 09/02/252108 Maribel Sep 02, [id number] CPK mildly elevated patient given a liter of IV fluids here patient is now alert oriented ambulating wants to go home requesting to go home. [AB] ED Course User Index [AB] Margarita Manrique MD Clinical Impressions as of 09/02/252108 Alcohol dependence with unspecified alcohol-induced disorder Cocaine use Clinical Impression Diagnosis Description Comment Final diagnoses Alcohol dependence with unspecified alcohol-induced disorder Alcohol dependence with unspecified alcohol-induced disorder -- Cocaine use Cocaine use -- Patient feels safe has safe ride home with sister to follow-up with primary care physician as needed. Disposition: Home Margarita Manrique MD 09/02/252108 documented in this encounter Plan of Treatment Not on file documented as of this encounter Procedures Procedure Name Priority Date/Time Associated Diagnosis Comments ETHANOL, BLOOD STAT 09/02/2025 8:18 PM EST CBC AND DIFFERENTIAL STAT 09/02/2025 8:18 PM EST LFTS (HEPATIC PANEL) STAT 09/02/2025 8:18 PM EST CBC AND DIFFERENTIAL STAT 09/02/2025 8:18 PM EST MAGNESIUM STAT 09/02/2025 8:18 PM EST CREATINE KINASE (CK) STAT 09/02/2025 8:18 PM EST BASIC METABOLIC PANEL (BMP) STAT 09/02/2025 8:18 PM EST ECG 12-LEAD STAT 09/02/2025 7:31 PM EST POCT GLUCOSE STAT 09/02/2025 7:04 PM EST documented in this encounter Results * (ABNORMAL) Creatine Kinase (CK) (09/02/2025 8:18 PM EST) [facility] Creatine Kinase (CK) 456(H) 39 - 308 U/L 09/02/2025 8:56 PM EST [facility] Blood (Blood) Venipuncture / Unknown 09/02/2025 8:18 PM EST 09/02/2025 8:29 PM EST us Margarita Coe MD LAB BLOOD BKR ORDERABLES Fi nal Result Performing Organization Address City/State/[facility] Co de Phone Number [address] [phone] * (ABNORMAL) CBC and Differential (09/02/2025 8:18 PM EST) [facility] WBC 6.99 4.00 - 11.00 K/uL 09/02/2025 8:33 PM [facility] RBC 4.87 4.50 - 5.90 M/uL 09/02/2025 8:33 PM [facility] Hemoglobin 15.2 13.5 - 17.5 g/dL 09/02/2025 8:33 PM [facility] Hematocrit 44.5 41.0 - 53.0 % 09/02/2025 8:33 PM [facility] MCV 91.4 80.0 - 100.0 fL 09/02/2025 8:33 PM [facility] MCH 31.2(H) 27.0 - 31.0 pg 09/02/2025 8:33 PM [facility] MCHC 34.2 32.0 - 36.0 g/dL 09/02/2025 8:33 PM [facility] MPV 8.6 8.4 - 12.0 fL 09/02/2025 8:33 PM [facility] RDW-CV 12.3 11.5 - 14.5 % 09/02/2025 8:33 PM [facility] PLT 256 150 - 450 K/uL 09/02/2025 8:33 PM [facility] Neutrophils 66.1 % 09/02/2025 8:33 PM [facility] Lymphocytes 24.0 % 09/02/2025 8:33 PM [facility] Monocytes 7.3 % 09/02/2025 8:33 PM [facility] Eosinophils 1.6 % 09/02/2025 8:33 PM [facility] Basophils 0.9 % 09/02/2025 8:33 PM [facility] Imm Grans 0.1 % 09/02/2025 8:33 PM [facility] NRBC 0.0 <=0.0 /100 WBCs 09/02/2025 8:33 PM [facility] Absolute Neutrophils 4.62 1.92 - 7.60 K/uL 09/02/2025 8:33 PM [facility] Absolute Lymphocytes 1.68 0.72 - 4.10 K/uL 09/02/2025 8:33 PM [facility] Absolute Monocytes 0.51 0.16 - 1.10 K/uL 09/02/2025 8:33 PM [facility] Absolute Eosinophils 0.11 0.00 - 0.50 K/uL 09/02/2025 8:33 PM [facility] Absolute Basophils 0.06 0.00 - 0.15 K/uL 09/02/2025 8:33 PM [facility] Absolute Imm Grans 0.01 0.00 - 0.09 K/uL 09/02/2025 8:33 PM [facility] Absolute NRBC 0.00 <=0.00 K cells/uL 09/02/2025 8:33 PM [facility] Absolute Neutrophils 4.62 1.92 - 7.60 K/uL 09/02/2025 8:33 PM EST [facility] Comment:Automated cell count . Manual ANC may differ if performed. Diff Type Auto 09/02/2025 8:33 PM [facility] Blood (Blood) Venipuncture / Unknown 09/02/2025 8:18 PM EST 09/02/2025 8:29 PM EST Margarita Coe MD LAB BLOOD BKR ORDERABLES Fi nal Result Performing Organization Address [facility] Co de Phone Number [address] [phone] * (ABNORMAL) Ethanol, Blood (09/02/2025 8:18 PM EST) Ethanol 227(H) Negative; <11 mg/dL 09/02/2025 8:56 PM [facility] Blood (Blood) Venipuncture / Unknown 09/02/2025 8:18 PM EST 09/02/2025 8:29 PM EST Margarita Coe MD LAB BLOOD BKR ORDERABLES Fi nal Result Performing Organization Address [facility] Co de Phone Number [address] [address] * Magnesium (09/02/2025 8:18 PM EST) Magnesium 2.1 1.7 - 2.6 mg/dL 09/02/2025 8:56 PM EST [facility] Blood (Blood) Venipuncture / Unknown 09/02/2025 8:18 PM EST 09/02/2025 8:29 PM EST Margarita Coe MD LAB BLOOD BKR ORDERABLES Fi nal Result Performing Organization Address City/[facility] Co de Phone Number [address] [phone] * (ABNORMAL) Hepatic Panel (LFTs) (09/02/2025 8:18 PM EST) AST 110(H) <40 U/L 09/02/2025 8:56 PM [facility] ALT 167(H) <50 U/L 09/02/2025 8:56 PM [facility] Alkaline Phosphatase 58 40 - 130 U/L 09/02/2025 8:56 PM [facility] Bilirubin, Total 0.5 0.0 - 1.2 mg/dL 09/02/2025 8:56 PM [facility] Bilirubin, Direct 0.2 0.0 - 0.3 mg/dL 09/02/2025 8:56 PM [facility] Total Protein 7.7 6.4 - 8.3 g/dL 09/02/2025 8:56 PM [facility] Albumin 4.6 3.5 - 5.2 g/dL 09/02/2025 8:56 PM [facility] Globulin 3.1 1.9 - 4.1 g/dL 09/02/2025 8:56 PM [facility] Blood (Blood) Venipuncture / Unknown 09/02/2025 8:18 PM EST 09/02/2025 8:29 PM EST us Margarita Coe MD LAB BLOOD BKR ORDERABLES Fi nal Result Performing Organization Address City/State/[facility] Co de Phone Number [address] [address] * Basic Metabolic Panel (BMP) (09/02/2025 8:18 PM EST) Sodium 142 136 - 145 mmol/L 09/02/2025 8:56 PM [facility] Potassium 3.9 3.4 - 5.1 mmol/L 09/02/2025 8:56 PM [facility] Chloride 104 98 - 107 mmol/L 09/02/2025 8:56 PM [facility] CO2 25 20 - 31 mmol/L 09/02/2025 8:56 PM [facility] Anion Gap 13 3 - 17 mmol/L 09/02/2025 8:56 PM [facility] BUN 7 6 - 23 mg/dL 09/02/2025 8:56 PM [facility] Creatinine 0.90 0.60 - 1.30 mg/dL 09/02/2025 8:56 PM [facility] eGFR 118 >59 mL/min/1.7 3m2 09/02/2025 8:56 PM [facility] Comment:Estimated glomerular filtration rate calculated using the CKD-EPI refit equation. Glucose 79 70 - 99 mg/dL 09/02/2025 8:56 PM [facility] Calcium 9.2 8.5 - 10.5 mg/dL 09/02/2025 8:56 PM [facility] Blood (Blood) Venipuncture / Unknown 09/02/2025 8:18 PM EST 09/02/2025 8:29 PM EST us Margarita Coe MD LAB BLOOD BKR ORDERABLES Fi nal Result Performing Organization Address City/State/[facility] Co de Phone Number [address] [address] * ECG 12-LEAD (09/02/2025 7:31 PM EST) Ventricular Rate EKG/MIN 80 BPM [facility] Atrial Rate 80 BPM [facility] WA Interval 160 ms [facility] QRS Duration 100 ms [facility] QT Interval 392 ms [facility] QTC Interval 452 ms [facility] P [place] 46 degrees [facility] R Wave [place] -12 degrees [facility] T Wave [place] -11 degrees [facility] 09/02/2025 7:31 PM EST 09/03/2025 9:25 AM EST Narrative [facility] - 09/03/2025 9:25 AM EST Normal sinus rhythm ST elevation, consider early repolarization, pericarditis, or injury Abnormal ECG When compared with ECG of 10-Mar-2025 18:20, T wave inversion now evident in Inferior leads Confirmed by Chase Navas ([id number]) on 09/03/2025 9:25:28 AM us Margarita Coe MD ECG ORDERABLES Final Resul t [facility] * POCT Glucose (09/02/2025 7:04 PM EST) Glucose 96 70 - 99 mg/dL 09/02/2025 7:06 PM EST [facility] Blood (Blood) 09/02/2025 7:0 4 PM EST 09/02/2025 7:06 PM EST us Margarita Coe MD LAB POCT DOCKED DEVICE UNSO LICTED RESULTS Final Result Performing Organization Address City/[facility] Co de Phone Number [facility] [address] [place] [address] documented in this encounter Visit Diagnoses Diagnosis Alcohol dependence with unspecified alcohol-induced disorder- Primary Cocaine use documented in this encounter Administered Medications Inactive Administered Medications - up to 3 most recent administrations Medication Order MAR Action Action Date Dose Rate Site sodium chloride 0.9% bolus 1,000 mL 1,000 mL, Intravenous, Administer over 30 Minutes, at 2,000 mL/hr, Once, On Maribel 09/02/25 at 1915, For 1 dose New Bag 09/02/2025 7:20 PM EST 1,000 mL 2000 mL/hr documented in this encounter Active and Recently Administered Medications Times are shown in EST. Scheduled Medication Order 08/31/2025 09/01/2025 09/02/2025 sodium chloride 0.9% bolus 1,000 mL (COMPLETED) 1,000 mL, Intravenous, Administer over 30 Minutes, at 2,000 mL/hr, Once, On Maribel 09/02/25 at 1915, For 1 dose 1920 (New Bag - Prov ider: Jennifer Cintron, GUILLERMO)[phone] (Stopped - Provider: Jennifer Cintron RN) documented in this encounter Care Teams Film Reproducer Relationship Specialty Start Date End Date Joey Ruiz MD [address] [place] [phone] PCP - General 03/10/25 documented as of this encounter Additional Source Comments The information contained in this document represents components of the legal health record. It is not the complete legal health record.[facility]
--- NOTE | 2025-09-03 18:52 | MHC.CARE ---
[employer] co-response, Kimberly - called in an expect, section 12. Patient Intoxicated, alcohol use, liable, crying. Called his parents threatening to end his life, drinking heavily. Went to [facility] yesterday 09/02, not evaluated by crisis. Today endorsing SI. Has superficial cut on his neck, reportedly attempted to kill himself a couple weeks ago. Patient was not assessed by [employer] due to appearing intoxicated.
--- NOTE | 2025-09-03 19:40 | ED_ITS ---
[facility] - General Adult General Chief complaint: Psychiatric Symptoms Stated complaint: SI sect. 12 ETOH abuse, easily agitatd w/ PD Time Seen by Provider: 09/03/25 19:40 Source: patient Mode of arrival: ambulatory Limitations: no limitations History of Present Illness ED Provider: Dr. Jameson [facility] narrative: This is a 30-year-old male presenting to ER today for evaluation of possible suicide ideation. Patient does have alcohol use disorder. Denies SI or HI at this time. Patient stated that he did did have a couple of drinks tonight. Related Data Home Medications ?Medication ?Instructions ?Recorded ?Confirmed No Known Home Meds 09/04/25 09/04/25 Allergies Allergy/AdvReac Type Severity Reaction Status Date / Time No Known Allergies Allergy Verified 09/03/25 19:57 Review of Systems 2 Review of Systems: Pertinent review of systems as mentioned in [facility]. All other system otherwise negative. [facility] Past Medical History [facility] Narrative: Medical history as mentioned in [facility] Medical History (Updated 09/06/25 @ 09:23 by Shama Tafoya) No pertinent past medical history Social History Social History Alcohol intake: current Alcohol intake frequency: 3 or more drinks per day Alcohol type: hard liquor Use of substances other than those prescribed or required for medical reasons: Unknown Substance Use Type: Crack/Cocaine and Other Substance Use Type Other:: benzo Last Used Substance: Just Prior to Admission Advance Directives: No Advance Directives Information Provided: No Physical Exam ED Exam Exam: General: Appears intoxicated Head: Normacephalic, atraumatic ENT: oral mucosa moist, neck supple, no tracheal deviation Cardiovascular: Tachycardic rate, regular rhythm, no murmurs, rubbing, gallops Respiratory: CTAB, no wheeze, rales, rhonchi Neurological: Awake and alert, no facial droop noted Skin: Warm and dry Psychiatric: Denies SI or HI Vital Signs: Vital Signs - 24 hr 09/05/25 14:00 09/05/25 20:31 09/06/25 05:50 Temperature 97.1 F Pulse Rate 83 115 H 75 Respiratory Rate 18 18 16 Blood Pressure 114/77 131/79 120/71 Pulse Oximetry 97 97 99 Oxygen Delivery Method Room Air Room Air Room Air BMI result Body Mass Index 25.8 Course Reevaluation(s) Reevaluation #1: Time: 05:58 Date: 09/04/25 Provider: Bob Morales MD Patient in physician observation for psychiatric evaluation.? No acute events reported overnight. No current complaints. VS stable.? Patient is in bed search status/pending CARE team evaluation. Will continue to monitor. Time: 09:39 Date: 09/05/25 Provider: Dae Mahan, DO Patient in physician observation for psychiatric evaluation.? No acute events reported overnight. No current complaints. VS stable.? Patient is in bed search status. Will continue to monitor. 5:45 AM 09/06/2025 (Darshana Jameson DO):Time: 05:45 Date: 09/06/25 Provider: Darshana Jameson, DO Patient in physician observation for psychiatric evaluation.? No acute events reported overnight. No current complaints. VS stable.? Patient is in bed search status/pending CARE team evaluation. Will continue to monitor. 9:23 AM 09/06/2025 (Darshana Jameson DO): Patient has a bed at [facility] and will be transferred Medications Administered Discontinued Medications Generic Name Dose Route Start Last Admin Trade Name Freq PRN Reason Stop Dose Admin Diphenhydramine HCl 50 mg 09/04/25 04:20 09/04/25 04:27 Diphenhydramine Hcl 25 Mg Capsule PO 09/04/25 04:21 50 mg ONCE ONE Administration Lorazepam 2 mg 09/04/25 04:20 09/04/25 04:27 Lorazepam 1 Mg Tablet PO 09/04/25 04:21 2 mg ONCE ONE Administration Lorazepam 2 mg 09/04/25 14:10 09/04/25 14:20 Lorazepam 1 Mg Tablet PO 09/04/25 14:11 2 mg ONCE ONE Administration Lorazepam 2 mg 09/04/25 20:32 09/04/25 20:43 Lorazepam 1 Mg Tablet PO 09/04/25 20:33 2 mg ONCE ONE Administration Melatonin 6 mg 09/05/25 19:36 09/05/25 19:46 Melatonin 3 Mg Tablet PO 09/05/25 19:37 6 mg ONCE ONE Administration Medical Decision Making Medical Decision Making MDM Narrative: 30-year-old male alcohol use disorder presented hospital today for evaluation of SI statements with mother on the phone. The patient's appear to be intoxicated at this time we will allow patient to sober up. Crisis consult will be placed. Lab work will be obtained per protocol here. He appears to be stable protecting his airway at this time. Review patient's lab work. No significant abnormality. Patient does have elevated ethanol level and some transaminitis likely secondary to alcohol use. Patient is positive for benzodiazepine and cocaine use as well. Patient will be pending metabolize aeration and evaluation by care team. Signed out to oncoming provider. CARE: The patient was seen by our care team. Patient is high risk, drinking daily, patient had a prior suicide attempt 5 weeks ago, patient held a knife to his neck. Yesterday, he called his mother and told her that he was going to in his life, could not take it anymore. Patient's mother recorded the conversation. At this time, [facility] is recommend an inpatient level of care Differential Diagnosis Differential Diagnoses: The differential diagnosis associated with the presentation includes Suicide ideation, homicidal ideation, hallucination, psychosis Lab Data MDM Lab Attestation statement: I reviewed the patient's lab results. 09/03/25 19:43 09/03/25 19:43 Labs: Lab Results 09/03/25 09/03/25 09/03/25 Range/Units 19:43 22:45 22:46 WBC 6.2 (4.8-10.8) X10*3/uL RBC 5.25 (4.60-5.80) X10*6/uL Hgb 16.4 (14.0-18.0) g/dl Hct 48.4 (42.0-52.0) % MCV 92.2 (80.0-98.0) fL MCH 31.2 (27.0-33.0) pg MCHC 33.9 (31.0-36.0) g/dl RDW 12.4 (11.0-16.0) % Plt Count 279 (160-400) X10*3/uL MPV 8.5 L (9.4-12.4) fL Immature Gran % (Auto) 0.3 (0.0-0.4) % Neut % (Auto) 60.4 (45-73) % Lymph % (Auto) 25.5 (20-40) % Gila % (Auto) 8.2 (2-11) % Eos % (Auto) 4.6 H (0-4) % Baso % (Auto) 1.0 (0-2) % Lymph # (Auto) 1.6 (1.2-4.9) X10*3/uL Gila # (Auto) 0.5 (0.1-1.2) X10*3/uL Eos # (Auto) 0.3 (0.0-0.4) X10*3/uL Baso # (Auto) 0.1 (0.0-0.2) X10*3/uL Abs Immat Gran (auto) 0.02 (0.00-0.03) X10*3/uL Absolute Neuts (auto) 3.8 (2.0-8.3) x10*3/uL Absolute Nucleated RBC 0.000 (0.0-0.012) X10*3/uL Nucleated RBC % (auto) 0.0 (0.0-0.2) /100WBC Sodium 145 (135-145) mmol/L Potassium 3.9 (3.3-5.1) mmol/L Chloride 109 H (96-108) mmol/L Carbon Dioxide 26 (22-29) mmol/L Anion Gap 14 (12-20) BUN 9 (9-16) mg/dL Creatinine 1.05 (0.5-1.4) mg/dL Estim Creat Clear Calc 106.2 Estimated GFR > 60 Random Glucose 133 H (60-115) mg/dL Calcium 9.4 (8.4-10.2) mg/dL Total Bilirubin 0.4 (0.0-1.0) mg/dL AST 192 H (5-37) U/L ALT 250 H (0-40) U/L Alkaline Phosphatase 68 (39-117) U/L Total Protein 7.8 (6.5-8.0) g/dL Albumin 4.9 (3.5-5.0) g/dL Urine Color Yellow Urine Appearance Clear Urine pH 5.5 (5.0-9.0) Ur Specific Ramsey 1.015 (1.005-1.025) Urine Protein Negative (Neg-Trace) mg/dL Urine Glucose (UA) Negative (Negative) mg/dL Urine Ketones Trace (Negative) mg/dL Urine Blood Negative (Negative) Urine Nitrite Negative (Negative) Ur Leukocyte Esterase Negative (Negative) Salicylates < 5.0 L (15-30) mg/dL Urine Opiates Screen Not Detected (Not Detect) Ur Buprenorphine Scrn Not Detected (Not Detect) ng/mL Ur Oxycodone Screen Not Detected (Not Detect) ng/mL Urine Methadone Screen Not Detected (Not Detect) ng/mL Urine Fentanyl Screen Not Detected (Not Detect) Acetaminophen < 3 (<30) mcg/mL Ur Barbiturates Screen Not Detected (Not Detect) Ur Phencyclidine Scrn Not Detected (Not Detect) Ur Amphetamines Screen Not Detected (Not Detect) U Benzodiazepines Scrn POSITIVE H (Not Detect) Urine Cocaine Screen POSITIVE H (Not Detect) U Marijuana (THC) Screen Not Detected (Not Detect) Ethyl Alcohol 318 H* mg/dL COVID-19 (MICAH) Cancelled COVID-19 Clin Com Cancelled Influenza Type A (PCR) NEGATIVE (Negative) Influenza Type B (PCR) NEGATIVE (Negative) RSV RNA Qual (PCR) NEGATIVE (Negative) SARS-CoV-2 RNA (RT-PCR) NEGATIVE (Negative) Discharge Plan Discharge Clinical Impression: Alcohol use disorder, Suicidal ideation, Cocaine use disorder, Depressive disorder Patient Disposition: Xfer Psychiatric Hosp Transfer Details: TO: [facility], [address] , [place], [place] [address] ACCEPTING Additional Instructions: You were seen in our Emergency Department today for treatment of a behavioral health issue. It is important after your visit that you follow up with either your behavioral health provider or a primary care doctor within 7 days.? If you have trouble finding a therapist you can reach out to [address] [phone] The National Suicide and Crisis Lifeline can be reached 7 days a week 24 hours a day.? Call 988 to speak with someone.? Return for any worsening symptoms or concerns such as thoughts of self harm or harm to others. Please call 911 if you feel your mental health is worsening.? Prescriptions: No Action No Known Home Meds Interventions: [place]-Suicide Risk Severity Scale Last Done: 09/05/25 01:00 Print Language: Nepali
[2025-09-03 19:49] LABS: MANUAL DIFF FLAG NO
[2025-09-03 19:51] LABS: Hematocrit 48.4 % (42.0-52.0); Hemoglobin 16.4 g/dl (14.0-18.0); Imm Gran Abs Auto 0.02 X10*3/uL (0.00-0.03); Imm Gran Pct Auto 0.3 % (0.0-0.4); Lymphocytes Absolute Auto 1.6 X10*3/uL (1.2-4.9); Mean Corpuscular HGB Conc 33.9 g/dl (31.0-36.0); Mean Corpuscular Hemoglobin 31.2 pg (27.0-33.0); Mean Corpuscular Volume 92.2 fL (80.0-98.0); NRBC Abs Auto 0.000 X10*3/uL (0.0-0.012); NRBC Pct Auto 0.0 /100WBC (0.0-0.2); Platelet Count 279 X10*3/uL (160-400); Red Blood Count 5.25 X10*6/uL (4.60-5.80); White Blood Count 6.2 X10*3/uL (4.8-10.8)
[2025-09-03 19:56] VITALS: BP 120/75; PULSE 108; RESP 18; TEMP 36.7; O2SAT 96; BMI 25.8
[2025-09-03 20:05] LABS: Alanine Aminotransferase 250 U/L (0-40); Albumin Level 4.9 g/dL (3.5-5.0); Alkaline Phosphatase 68 U/L (39-117); Anion Gap 14 (12-20); Aspartate Amino Transferase 192 U/L (5-37); Blood Urea Nitrogen 9 mg/dL (9-16); Calcium 9.4 mg/dL (8.4-10.2); Carbon Dioxide 26 mmol/L (22-29); Chloride 109 mmol/L (96-108); Creatinine Clr Calc Pharmacy 106.2; Estimated Glomerular Filt Rate > 60; Potassium 3.9 mmol/L (3.3-5.1); Sodium 145 mmol/L (135-145); Total Protein 7.8 g/dL (6.5-8.0)
[2025-09-03 20:07] LABS: Acetaminophen LAB < 3 mcg/mL (<30); Salicylate < 5.0 mg/dL (15-30)
--- OUTSIDE RECORDS SUMMARY | 2025-09-03 20:22 | XMS_ITS | Clinical Summary ---
Author Organization [facility] Address [address] [place], [place] [id number] Phone Care Team Providers Care Sales Representative Supervisor Name Role Phone Unavailable Primary Care Provider Unavailabl e Active Problems Patient Care Coordination No te Formatting of this note migh t be different from the original. [place] [facility] [place], chart inactivated No additional [...]
--- OUTSIDE RECORDS SUMMARY | 2025-09-03 20:22 | XMS_ITS | Encounter Summary ---
Author Organization [facility] Address [address] [place] [address] Phone Care Team Providers Care Managing Partner Name Role Phone Salvatore Brooks MD Primary Care Provider Unavailabl e Encounter Details Date Type Department Care Team (Late st Contact Info) Description 05/08/2017 Conversion Encounter [facility] - [address], [address] [place] [address] Salvatore Brooks MD Social History Tobacco Use [...] on filedocumented in this encounter Care Teams Managing Partner Relationship Specialty Start Date End Date Salvatore Brooks MD PCP - General 11/20/16 04/09/21 documented as of this encounter
--- OUTSIDE RECORDS SUMMARY | 2025-09-03 20:22 | XMS_ITS | Clinical Summary ---
Author Organization [facility] Address [address] [place] [address] Phone Care Team Providers Care Mental Health Coordinator Name Role Phone Joey Ruiz MD Primary Care Provider Allergies No known active allergies Medications No known medications Encounters Date Type Department Care Team Description 09/02/2025 6:50 PM EST - 09/02/2025 9:46 PM EST Emergency [facility] [address] [place] [address] Margarita Manrique MD Discharge Disposition: Home or Self Care [...] EST Inhaled Oxygen Concentration - - Weight 80.2 [...] 2021 INFLUENZA VACCINE (#1) 2025 COVID-19 VACCINE (2024-2 6 season) 2025 HEPATITIS C SCREENING Completed 04/10/2018 [...] Procedure Name Priority Date/Time Associated Diagnosis Comments CREATINE KINASE (CK) STAT 09/02/2025 8:18 PM EST CBC AND DIFFERENTIAL STAT 09/02/2025 8:18 PM EST ETHANOL, BLOOD STAT 09/02/2025 8:18 PM EST MAGNESIUM STAT 09/02/2025 8:18 PM EST LFTS (HEPATIC PANEL) STAT 09/02/2025 8:18 PM EST BASIC METABOLIC PANEL (BMP) STAT 09/02/2025 8:18 PM EST CBC AND DIFFERENTIAL STAT 09/02/2025 8:18 PM EST ECG 12-LEAD STAT 09/02/2025 7:31 PM EST POCT GLUCOSE STAT 09/02/2025 7:04 PM EST from Last 3 Months Results * (ABNORMAL) Ethanol, Blood (09/02/2025 8:18 PM EST) Ethanol 227(H) Negative; <11 mg/dL 09/02/2025 8:56 PM [facility] Blood (Blood) Venipuncture / Unknown 09/02/2025 8:18 PM EST 09/02/2025 8:29 PM EST us Margarita Coe MD LAB BLOOD BKR ORDERABLES Fi nal Result [address] [address] * (ABNORMAL) CBC and Differential (09/02/2025 8:18 PM EST) WBC 6.99 4.00 - 11.00 K/uL 09/02/2025 8:33 PM [facility] RBC 4.87 4.50 - 5.90 M/uL 09/02/2025 8:33 PM [facility] Hemoglobin 15.2 13.5 - 17.5 g/dL 09/02/2025 8:33 PM [facility] Hematocrit 44.5 41.0 - 53.0 % 09/02/2025 8:33 PM [facility] MCV 91.4 80.0 - 100.0 fL 09/02/2025 8:33 PM [facility] MCH 31.2(H) 27.0 - 31.0 pg 09/02/2025 8:33 PM [facility] MCHC 34.2 32.0 - 36.0 g/dL 09/02/2025 8:33 PM [facility] MPV 8.6 8.4 - 12.0 fL 09/02/2025 8:33 PM [facility] RDW-CV 12.3 11.5 - 14.5 % 09/02/2025 8:33 PM [facility] PLT 256 150 - 450 K/uL 09/02/2025 8:33 PM [facility] Neutrophils 66.1 % 09/02/2025 8:33 PM [facility] Lymphocytes 24.0 % 09/02/2025 8:33 PM [facility] Monocytes 7.3 % 09/02/2025 8:33 PM [facility] Eosinophils 1.6 % 09/02/2025 8:33 PM [facility] Basophils 0.9 % 09/02/2025 8:33 PM [facility] Imm Grans 0.1 % 09/02/2025 8:33 PM [facility] NRBC 0.0 <=0.0 /100 WBCs 09/02/2025 8:33 PM [facility] Absolute Neutrophils 4.62 1.92 - 7.60 K/uL 09/02/2025 8:33 PM [facility] Absolute Lymphocytes 1.68 0.72 - 4.10 K/uL 09/02/2025 8:33 PM [facility] Absolute Monocytes 0.51 0.16 - 1.10 K/uL 09/02/2025 8:33 PM [facility] Absolute Eosinophils 0.11 0.00 - 0.50 K/uL 09/02/2025 8:33 PM [facility] Absolute Basophils 0.06 0.00 - 0.15 K/uL 09/02/2025 8:33 PM [facility] Absolute Imm Grans 0.01 0.00 - 0.09 K/uL 09/02/2025 8:33 PM [facility] Absolute NRBC 0.00 <=0.00 K cells/uL 09/02/2025 8:33 PM [facility] Absolute Neutrophils 4.62 1.92 - 7.60 K/uL 09/02/2025 8:33 PM [facility] Comment:Automated cell count . Manual ANC may differ if performed. Diff Type Auto 09/02/2025 8:33 PM [facility] Blood (Blood) Venipuncture / Unknown 09/02/2025 8:18 PM EST 09/02/2025 8:29 PM EST us Margarita Coe MD LAB BLOOD BKR ORDERABLES Fi nal Result [facility] [address] [place] [address] * (ABNORMAL) Hepatic Panel (LFTs) (09/02/2025 8:18 PM EST) AST 110(H) <40 U/L 09/02/2025 8:56 PM [facility] ALT 167(H) <50 U/L 09/02/2025 8:56 PM [facility] Alkaline Phosphatase 58 40 - 130 U/L 09/02/2025 8:56 PM [facility] Bilirubin, Total 0.5 0.0 - 1.2 mg/dL 09/02/2025 8:56 PM [facility] Bilirubin, Direct 0.2 0.0 - 0.3 mg/dL 09/02/2025 8:56 PM [facility] Total Protein 7.7 6.4 - 8.3 g/dL 09/02/2025 8:56 PM [facility] Albumin 4.6 3.5 - 5.2 g/dL 09/02/2025 8:56 PM [facility] Globulin 3.1 1.9 - 4.1 g/dL 09/02/2025 8:56 PM [facility] Blood (Blood) Venipuncture / Unknown 09/02/2025 8:18 PM EST 09/02/2025 8:29 PM EST us Margarita Coe MD LAB BLOOD BKR ORDERABLES Fi nal Result Performing Organization Address City/[facility]/ZIP Co de Phone Number [address] [address] * Magnesium (09/02/2025 8:18 PM EST) Magnesium 2.1 1.7 - 2.6 mg/dL 09/02/2025 8:56 PM [facility] Blood (Blood) Venipuncture / Unknown 09/02/2025 8:18 PM EST 09/02/2025 8:29 PM EST us Margarita Coe MD LAB BLOOD BKR ORDERABLES Fi nal Result Performing Organization Address City/[facility]/ZIP Co de Phone Number [address] [address] * (ABNORMAL) Creatine Kinase (CK) (09/02/2025 8:18 PM EST) Creatine Kinase (CK) 456(H) 39 - 308 U/L 09/02/2025 8:56 PM [facility] Blood (Blood) Venipuncture / Unknown 09/02/2025 8:18 PM EST 09/02/2025 8:29 PM EST us Margarita Coe MD LAB BLOOD BKR ORDERABLES Fi nal Result [facility] [address] [place] [address] * Basic Metabolic Panel (BMP) (09/02/2025 8:18 PM EST) Pathologist [facility] Sodium 142 136 - 145 mmol/L 09/02/2025 8:56 PM [facility] Potassium 3.9 3.4 - 5.1 mmol/L 09/02/2025 8:56 PM [facility] Chloride 104 98 - 107 mmol/L 09/02/2025 8:56 PM [facility] CO2 25 20 - 31 mmol/L 09/02/2025 8:56 PM [facility] Anion Gap 13 3 - 17 mmol/L 09/02/2025 8:56 PM [facility] BUN 7 6 - 23 mg/dL 09/02/2025 8:56 PM [facility] Creatinine 0.90 0.60 - 1.30 mg/dL 09/02/2025 8:56 PM [facility] eGFR 118 >59 mL/min/1.7 3m2 09/02/2025 8:56 PM [facility] Comment:Estimated glomerular filtration rate calculated using the CKD-EPI refit equation. Glucose 79 70 - 99 mg/dL 09/02/2025 8:56 PM [facility] Calcium 9.2 8.5 - 10.5 mg/dL 09/02/2025 8:56 PM [facility] Blood (Blood) Venipuncture / Unknown 09/02/2025 8:18 PM EST 09/02/2025 8:29 PM EST us Margarita Coe MD LAB BLOOD BKR ORDERABLES Fi nal Result Performing Organization Address City/[facility]/ZIP Co de Phone Number [address] [address] * ECG 12-LEAD (09/02/2025 7:31 PM EST) Ventricular Rate EKG/MIN 80 BPM [facility] Atrial Rate 80 BPM [facility] DC Interval 160 ms [facility] QRS Duration 100 ms [facility] QT Interval 392 ms [facility] QTC Interval 452 ms [facility] P Hudson 46 degrees [facility] R Wave [place] -12 degrees [facility] T Wave [place] -11 degrees [facility] 09/02/2025 7:31 PM EST [...] Coe MD ECG ORDERABLES Final Resul t Performing Organization Address [facility] Co de Phone Number [facility] * POCT Glucose (09/02/2025 7:04 PM EST) Pathologist [facility] Glucose 96 70 - 99 mg/dL 09/02/2025 7:06 PM EST [facility] Blood (Blood) 09/02/2025 7:0 4 PM EST 09/02/2025 7:06 PM EST us Margarita Coe MD LAB POCT DOCKED DEVICE UNSO LICTED RESULTS Final Result Performing Organization Address City/[facility]/ZIP Co de Phone Number [address] [address] from Last 3 Months Insurance [facility] [employer] DIRECT [facility] DIRECT [facility] DIRECT [facility] DIRECT [facility] DIRECT [facility] DIRECT Care Teams Mental Health Coordinator Relationship Specialty Start Date End Date Joey Ruiz MD [address] [place] [id number] PCP - General 03/10/25 Additional Source Comments The information contained in this document represents components of the legal health record. It is not the complete legal health record.[facility]
[2025-09-03 23:00] LABS: Appearance Urine Clear; Glucose Urine UA Negative (Negative); PH 5.5 (5.0-9.0); Specific Gravity - Urine 1.015 (1.005-1.025)
[2025-09-03 23:15] LABS: Cannabinoid Screen Urine Not Detected (Not Detect)
--- NOTE | 2025-09-03 23:40 | PC.NURSE ---
at this time nurse to nurse report given to Grecia choe in the pod
[2025-09-03 23:50] LABS: Resp Syncy Virus RNA Qual PCR NEGATIVE (Negative); SARS COV2 PCR INHOUSE NEGATIVE (Negative)
--- NOTE | 2025-09-04 00:12 | PC.NURSE ---
Report recieved from GUILLERMO Davidson. Patient received on the POD, plant changer completed on the Main. Presents as calm and cooperative. When questioned, he stated I just drank more than usual today. Alcohol is my problem. I was on the phone with my Mom and since I was alone I think she got scared. She fabricated a lot to get me sectioned. Endorses passive SI, no plan/intent. Denies HI/AVH. Agreeable to alert staff if feeling unsafe. Reports he's a daily drinker, consumes about 12 nips of Vodka every day. Endorses history of ETOH WD/Seizures. Endorses issues with substances, but did not want to elaborate with t/w. Denies current pain/discomfort. Reports no current medications. Meal tray ordered. 15 minute safety check initiated. Continue plan for MTF.
--- NOTE | 2025-09-04 04:30 | PC.NURSE ---
Patient endorsing high anxiety and states I'm really about to have a panic attack after learning about Section status. MD Oleary made aware, order obtained for PRN Benadryl/Ativan, pending effectiveness. Will continue to monitor for safety.
[2025-09-04 06:39] VITALS: BP 110/58; PULSE 85; RESP 20; TEMP 36.6; O2SAT 97
--- NOTE | 2025-09-04 08:27 | PC.NURSE ---
Assumed care, report received. Pt is currently sleeping. safety maintained.
[2025-09-04 14:00] VITALS: BP 112/66; PULSE 99; RESP 14; TEMP 36.5; O2SAT 98
--- NOTE | 2025-09-04 14:23 | PC.NURSE ---
Pt wakes to use the bathroom, he is noted to be tremulous and irritable. CIWA 6, He is given 2 mg of Ativan.
--- NOTE | 2025-09-04 16:32 | PHA.MEDREC ---
Pharmacy Consult ? Medication Reconciliation Pharmacy has completed the medication reconciliation. Confirmed with Josephine Acevedo, attending RN that patient claims to not be taking home medications.
[2025-09-04 19:58] VITALS: BP 137/83; PULSE 98; RESP 18; TEMP 37.1; O2SAT 96
--- NOTE | 2025-09-04 20:48 | PC.NURSE ---
Assumed care at 1845. Patient presents as calm and cooperative. Moderate tremors visible with arms extended, CIWA score of 5. MD Nixon made aware, given PRN 2mg Ativan. Will continue to monitor for safety.
[2025-09-05 06:37] VITALS: BP 136/81; PULSE 93; RESP 18; TEMP 36.4; O2SAT 98
--- NOTE | 2025-09-05 07:30 | PC.NURSE ---
Assumed care, report received. Pt is currently sleeping, safety is maintained.
[2025-09-05 14:00] VITALS: BP 114/77; PULSE 83; RESP 18; O2SAT 97
--- NOTE | 2025-09-05 15:18 | ECG_ITS ---
Test Reason : PROLONG QTC Blood Pressure : */* mmHG Vent. Rate : 73 BPM Atrial Rate : 73 BPM P-R Int : 154 ms QRS Dur : 94 ms QT Int : 378 ms P-R-T Axes : 50 -4 4 degrees QTcB Int : 416 ms Normal sinus rhythm with sinus arrhythmia Normal ECG No previous ECGs available Referred By: Dae Mahan Electronically Signed By: MAC ALLEN MD
[2025-09-05 20:31] VITALS: BP 131/79; PULSE 115; RESP 18; O2SAT 97
--- NOTE | 2025-09-05 20:33 | MHC.EDTECH ---
patient took a shower
--- NOTE | 2025-09-05 22:25 | PC.NURSE ---
PT has remained calm and cooperative. she had a visit from his Father that went well. HE spent some time on the unit talking with staff and peers.
[2025-09-06 05:50] VITALS: BP 120/71; PULSE 75; RESP 16; TEMP 36.2; O2SAT 99
--- NOTE | 2025-09-06 07:25 | PC.NURSE ---
Assumed care, report received. Pt is currently sleeping, safety is maintained.
[2025-09-06 11:37] VITALS: BP 120/71; PULSE 75; RESP 16; TEMP 36.2; O2SAT 99
== END 2025-09-06 11:38 ==
PROVIDERS: Physician Assistant Medical; Emergency Provider Student in an Organized Health Care Education/Training Program
DX: F10.129 Alcohol abuse with intoxication, unspecified (principal); F33.1 Major depressive disorder, recurrent, moderate; R45.851 Suicidal ideations; F14.90 Cocaine use, unspecified, uncomplicated; R00.0 Tachycardia, unspecified; R45.1 Restlessness and agitation; Z03.818 Encounter for observation for suspected exposure to other biological agents ruled out; Z51.81 Encounter for therapeutic drug level monitoring
CPT/HCPCS: 80053; 80143; 80179; 80307; 81003; 85025; 87637; 93005; 99285; S9485

== ENCOUNTER → 2025-09-05 15:18 | Outpatient (BNV) | payer MEDICARE, SELFPAY | PROVIDERS: Emergency Provider Student in an Organized Health Care Education/Training Program; Visit Provider Internal Medicine Cardiovascular Disease | DX: Z13.6 Encounter for screening for cardiovascular disorders (principal) | CPT/HCPCS: 93010 ==